=== PATIENT | male | born 1950 | race Caucasian/White ===

== ENCOUNTER 2017-08-20 06:52 | Day surgery (SDC) | payer BC, OTHER ==
[2017-08-20] MEDS: NS 1,000 ML IV (07:00)
[2017-08-20] MEDS ORDERED: PROPOFOL 200 MG/20 ML VIAL As Ordered (08:31)
== END 2017-08-20 09:06 | disposition home or self-care (01) ==
LOC: M OPP 06:52
DX: Z12.11 Encounter for screening for malignant neoplasm of colon (principal); K64.8 Other hemorrhoids; Z86.010 Personal history of colon polyps; Z79.82 Long term (current) use of aspirin; Z79.899 Other long term (current) drug therapy; I10 Essential (primary) hypertension; J45.990 Exercise induced bronchospasm
CPT/HCPCS: 45378

== ENCOUNTER 2020-06-18 12:10 | Observation (INO) | payer BC, OTHER ==
[~2020-06-18] VITALS: Ht 177.8 cm; Wt 82.7 kg
[~2020-06-18 12:10] MED LIST: ASPI-527 PO; VENTAER IN
[2020-06-18] MEDS ORDERED: NS 1,000 ML IV SCH (12:32)
--- NOTE | 2020-06-18 13:11 | REP ---
INDICATION: Altered Mental Status. COMPARISON: None. TECHNIQUE: Semi-erect AP portable view. FINDINGS: EKG monitoring electrodes are seen. The lungs are well inflated. There is minimal bibasilar linear fibrosis. Heart is not enlarged. No infiltrate is seen. Pulmonary vasculature is not increased. No significant bony abnormality. IMPRESSION: Minimal bibasilar linear fibrosis. Otherwise no acute disease. <Electronically signed by Joshua Cid > 06/18/20 [id number]
[2020-06-18 13:38] LABS: BASO % 0.4 % (0.0-1.0); EOS # 0.2 10^3/uL (0.0-0.5); EOS % 2.4 % (0.0-3.0); HEMATOCRIT 46.8 % (42.0-52.0); HEMOGLOBIN 15.8 g/dl (13.5-17.5); LYMPH # 1.2 10^3/uL (1.5-5.0); LYMPH % 17.1 % (24.0-44.0); MEAN CORPUSCULAR HEMOGLOBIN 29.7 pg (27.0-33.0); MEAN CORPUSCULAR HGB CONC 33.8 g/dl (32.0-36.5); MONO # 0.4 10^3/uL (0.0-0.8); MONO % 5.9 % (0.0-5.0); NEUTROPHILS % 73.8 % (36.0-66.0); PLATELET COUNT, AUTOMATED 215 10^3/uL (150-450); RED BLOOD COUNT 5.32 10^6/uL (4.30-6.10); WHITE BLOOD COUNT 6.7 10^3/uL (4.0-10.0)
--- NOTE | 2020-06-18 13:42 | REP ---
INDICATION: Altered Mental Status. COMPARISON: None. TECHNIQUE: Helical scanning is acquired. 5 mm axial images were reformatted. Coronal MPR images were generated. FINDINGS: Bone window settings demonstrate an intact bony calvarium. There is no evidence of skull fracture or incidental bony calvarial lesion. There is mild mucosal thickening affecting the ethmoid and sphenoid sinuses. The visualized paranasal sinuses appear otherwise clear. No intraorbital abnormality is seen. On soft tissue window setting images; the lateral, third, and fourth ventricles are normal in size and position. Flores-white differentiation pattern is normal above and below the tentorium. There are is no evidence of intracranial hemorrhage. No mass, edema, infarction, or midline shift is seen. No extra-axial fluid collection is appreciated. There is mild mucosal thickening affecting the ethmoid and sphenoid sinuses bilaterally. Vascular calcification is noted. IMPRESSION: Vascular calcification and mild mucosal thickening in the ethmoid sinuses. Otherwise negative noncontrast head CT. No acute intracranial abnormality.. <Electronically signed by Joshua Cid > 06/18/20 [id number]
[2020-06-18 13:48] LABS: INR 0.99; PROTHROMBIN TIME 13.3 SECONDS (12.5-14.3)
[2020-06-18 13:55] LABS: AMPHETAMINES LEVEL URINE NEGATIVE (NEGATIVE); BARBITURATES URINE NEGATIVE (NEGATIVE); BENZODIAZEPINES URINE NEGATIVE (NEGATIVE); CANNABINOIDS URINE NEGATIVE (NEGATIVE); COCAINE METABOLITE URINE NEGATIVE (NEGATIVE); METHADONE URINE NEGATIVE (NEGATIVE); OPIATES URINE NEGATIVE (NEGATIVE); PHENCYCLIDINE URINE NEGATIVE (NEGATIVE)
[2020-06-18 14:11] LABS: ACETAMINOPHEN LEVEL 6.6 UG/ML (10.0-30.0); ALBUMIN 3.8 GM/DL (3.2-5.2); ALT/SGPT 10 U/L (12-78); BILIRUBIN,DIRECT < 0.1 MG/DL (0.0-0.2); BILIRUBIN,TOTAL 0.6 MG/DL (0.2-1.0); BLOOD UREA NITROGEN 8 MG/DL (7-18); CARBON DIOXIDE LEVEL 19 MEQ/L (21-32); CHLORIDE LEVEL 107 MEQ/L (98-107); CK-MB VALUE MASS 1.9 NG/ML (<3.6); CPK CREATINE PHOSPHOKINASE 60 U/L (39-308); CREATININE FOR GFR 0.48 MG/DL (0.70-1.30); ETHYL ALCOHOL (ETHANOL) 0.006 % (0.000-0.010); GLOMERULAR FILTRATION RATE > 60.0 (>49); GLUCOSE, FASTING 122 MG/DL (70-100); MB/CK RELATIVE INDEX 3.17 (< OR =4); POTASSIUM SERUM 4.6 MEQ/L (3.5-5.1); SALICYLATE LEVEL < 1.7 MG/DL (5.0-30.0); SODIUM LEVEL 140 MEQ/L (136-145); TOTAL PROTEIN 6.4 GM/DL (6.4-8.2); TROPONIN I < 0.02 NG/ML (< 0.10)
[2020-06-18] MEDS ORDERED: LABETALOL 100MG/20ML VIAL IV STA ×2 (15:01→16:06)
[2020-06-18 17:55] VITALS: BP 163/96
--- NOTE | 2020-06-18 17:58 | HPEPDOC ---
[facility] Medical History & Physical Date of Admission Jun 18, 2020 Date of Service: Jun 18, 2020 Attending Physician: JOANNA CHAMPION DO History and Physical PCP: None. Previously seen by nurse practitioner at [facility] a few years ago, but this practitioner has since retired and he has not reestablished care with a new primary care provider. If possible, he would like to establish with a new PCP in [place], [place] as this is closer to his current home. CHIEF COMPLAINT: Syncope, fall, head laceration HISTORY OF PRESENT ILLNESS: Patient is a 69-year-old male who was brought to the emergency department status post a syncopal episode with unwitnessed fall. The patient cannot remember the fall, and vaguely remembers being brought to the ED by his . He has never had a syncopal episode or fall in the past, but reports that for many years now he does get lightheaded when standing up too quickly, and wonders if that may have been the predominant precipitant in this case. He does not recall having any sort of illness or symptoms earlier in the day or preceding his fall. Currently, here in the ED, he reports that he is actually feeling well all things considered. He is completely awake, alert, and oriented at this time, he is an otherwise excellent historian. He reports that his children think he may have tripped over the the dog as well. CODE STATUS: Full code PAST MEDICAL HISTORY: Hypertension Apparently he was treated with lisinopril in the past, but did not like the way it made him feel. Lisinopril made him feel groggy/lightheaded, and he was not able to participate in any strenuous activity while he was on it, therefore he quit taking it, and has not been taking any antihypertensives for at least the past few years. PAST SURGICAL HISTORY: None SOCIAL HISTORY: Denies smoking, has a few beers on a daily basis. Denies illicit drug use. FAMILY HISTORY: Father of what is suspected to be a myocardial infarction at the age of 22, beyond that he does not know much of his paternal family medical history. Mother has hypertension as well. REVIEW OF SYSTEMS: Constitutional: Patient denies fevers, chills, night sweats, recent weight gain/loss. HEENT: Patient denies blurred or double vision, transient visual disturbances, postnasal drip, epistaxis, sore throat, difficulty chewing or swallowing food. Cardiovascular: Patient denies chest discomfort/pain, palpitations, exertional dyspnea, orthopnea, edema of the extremities, claudication. Respiratory: Patient denies dyspnea, wheezing, cough, hemoptysis, sputum production. Gastrointestinal: Patient denies nausea, vomiting, diarrhea, constipation, abdominal pain, melena, hematochezia, hematemesis, jaundice. Neurological: Patient denies any numbness, tingling, or weakness of the extremities. He does experience lightheadedness when he stands up quickly. No history of seizures. PHYSICAL EXAMINATION: General: Awake, alert, oriented 3. HEENT: Head normocephalic, he does have a small laceration injury, it is not a linear wound, but it is perhaps 1 cm in length, located on the right posterior aspect of his scalp, martine in place. There is a significant amount of blood in his hair, but the wound is no longer healing at this time. conjunctiva are pink, sclera are nonicteric, buccal mucosa is pink and moist with no lesions in the oropharynx. Hearing is grossly intact to conversation. Wears glasses. Respiratory: Clear to auscultation bilaterally with no wheezes, rales, or rhonchi. Cardiovascular: Regular rate and rhythm, with no rubs, gallops, or murmur. No carotid bruits. Abdomen: Soft, nontender, nondistended, no hepatosplenomegaly appreciated. Bowel sounds present. Extremities: 2+ pulses in the radial and dorsalis pedis bilaterally. No evidence of clubbing or cyanosis. 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 5/5 strength throughout the bilateral upper and lower extremities. Finger to nose is performed easily and accurately bilaterally. Sensation is intact to light touch throughout bilateral upper and lower extremities. ELECTROCARDIOGRAM: Sinus rhythm, no acute abnormalities IMAGING: CT head without contrast IMPRESSION: Vascular calcification and mild mucosal thickening in the ethmoid sinuses. Otherwise negative noncontrast head CT. No acute intracranial abnormality.. ASSESSMENT: Hypertensive urgency Syncopal episode Fall with trauma to the posterior aspect of his head Acute amnesia after head trauma, now resolved, but still cannot remember the fall PLAN: Patient will be [facility] floor. His history would indicate that his syncopal episode and fall would be secondary to orthostatic hypotension, however he has a significantly elevated blood pressure upon arrival to the ED constituting hypertensive urgency. He does not have any evidence of end organ damage at this time, therefore the goal to lower his blood pressure to within normal limits will be over hours to days, therefore this will be done with PO medications. Given his history of hypertension, and not liking the effects of lisinopril making him feel groggy, and unable to handle physical activity, his significantly elevated blood pressure may be chronic in nature and even bringing his blood pressure down into the normal range may cause him lightheadedness. He was given 2 doses of labetalol in the emergency department and his pressure has improved from 210/110 down to 175/83. Will treat with captopril 12.5 mg every 8 hours with hold parameters. Nevertheless, in regard to working him up for hypertension and syncope: Renal and liver function is within normal limits, cardiac markers are negative, EKG is unremarkable, urinalysis is unremarkable, toxicology is negative, CBC is within normal limits, patient is not anemic. Neuro examination does not show any focal deficits. Will order echocardiogram, carotid duplex ultrasound, aldosterone/renin ratio, lipid panel, thyroid studies, hemoglobin A1c, and we'll keep him on telemetry over the next 48 hours. Vital Signs Vital Signs Date Time Temp Pulse Resp B/P (MAP) Pulse Ox O2 Delivery O2 Flow Rate FiO2 06/18/20 17:48 98.0 18 173/89 (117) 06/18/20 17:45 69 95 06/18/20 12:12 Room Air Laboratory Data Labs 24H Laboratory Tests 2 06/18/20 13:18: Immature Granulocyte % (Auto) 0.4, Neutrophils (%) (Auto) 73.8H, Lymphocytes (%) (Auto) 17.1L, Monocytes (%) (Auto) 5.9H, Eosinophils (%) (Auto) 2.4, Basophils (%) (Auto) 0.4, Neutrophils # (Auto) 5.0, Lymphocytes # (Auto) 1.2L, Monocytes # (Auto) 0.4, Eosinophils # (Auto) 0.2, Basophils # (Auto) 0.0, Nucleated Red Blood Cells % (auto) 0.0, Prothrombin Time 13.3, Prothromb Time International Ratio 0.99, Anion Gap 14, Glomerular Filtration Rate > 60.0, Lactic Acid Level 2.0, Calcium Level 10.0, Total Bilirubin 0.6, Direct Bilirubin < 0.1, Aspartate Amino Transf (AST/SGOT) 10, Alanine Aminotransferase (ALT/SGPT) 10L, Alkaline Phosphatase 47, Ammonia 16, Total Creatine Kinase 60, Creatine Kinase MB 1.9, Creatine Kinase MB Relative Index 3.17, Troponin I < 0.02, Total Protein 6.4, Albumin 3.8, Albumin/Globulin Ratio 1.5, Thyroid Stimulating Hormone (TSH) 1.050, Salicylates Level < 1.7L, Acetaminophen Level 6.6L, Ethyl Alcohol Level 0.006 06/18/20 13:22: Urine Color YELLOW, Urine Appearance CLEAR, Urine pH 6.0, Urine Specific [place] 1.012, Urine Protein NEGATIVE, Urine Glucose (UA) NEGATIVE, Urine Ketones NEGATIVE, Urine Blood NEGATIVE, Urine Nitrite NEGATIVE, Urine Bilirubin NEGATIVE, Urine Urobilinogen 0.2, Urine Leukocyte Esterase NEGATIVE, Urine WBC (Auto) 1, Urine RBC (Auto) 0, Urine Hyaline Casts (Auto) 0, Urine Bacteria (Auto) NEGATIVE, Urine Squamous Epithelial Cells 0, Urine Mucus (Auto) SMALL, Urine Sperm (Auto) , Urine Opiates Screen NEGATIVE, Urine Methadone Screen NEGATIVE, Urine Barbiturates Screen NEGATIVE, Urine Phencyclidine Screen NEGATIVE, Urine Amphetamines Screen NEGATIVE, Urine Benzodiazepines Screen NEGATIVE, Urine Cocaine Metabolite Screen NEGATIVE, Urine Cannabinoids Screen NEGATIVE CBC/BMP Laboratory Tests 06/18/20 13:18 Home Medications No Active Prescriptions or Reported Meds Allergies Coded Allergies: No Known Allergies (Unverified , 08/16/17) A-FIB/CHADSVASC A-FIB History Current/History of A-Fib/PAF?: No Current PO Anticoag Therapy: JOANNA Lopez DO Jun 18, 2020 17:58
[2020-06-18] MEDS ORDERED: ACETAMINOPHEN TAB 650MG DOSE (2X325MG) PO PRN (18:00)
[2020-06-18 18:54] LABS: HEMOGLOBIN A1c 5.5 %
[2020-06-18 19:16] LABS: CHOLESTEROL RISK RATIO 3.604 (<5); FREE T4 0.93 NG/DL (0.76-1.46); THYROID STIMULATING HORMONE 1.34 uIU/ML (0.358-3.740)
[2020-06-18] MEDS: ENOXAPARIN 40MG/0.4ML SYRINGE (J1650 PER 10MG) SC SCH (20:06)
[2020-06-18] MEDS: CAPTOpril 12.5 MG TAB PO SCH (21:36)
[2020-06-18 22:00] VITALS: BP_SYST 152; BP_SYST 155; BP_SYST 164; BP_DIAS 90; BP_DIAS 91; BP_DIAS 92
--- NOTE | 2020-06-18 22:00 | ECGEPIP ---
[facility] - ED Test Date: 2020-06-18 Pat Name: YOLI PEREZ Department: Room: - Gender: Male Healthcare Market Consultant: chava : 1950 Requested By: NAHEED GLASS Order Number: [id number] Reading MD: Gallo Khan Measurements Intervals [place] Rate: 71 P: 61 [place]: 180 QRS: 7 QRSD: 87 T: 74 QT: 394 QTc: 429 Interpretive Statements SINUS RHYTHM INCOMPLETE RIGHT BUNDLE BRANCH BLOCK NONSPECIFIC T-WAVE ABNORMALITY NO PRIORS FOR COMPARISON Electronically Signed on 06-18-2020 21:59:50 EDT by Gallo Khan
[2020-06-19 01:51] VITALS: BP_SYST 148; BP_SYST 150; BP_SYST 156; BP_DIAS 77; BP_DIAS 82; BP_DIAS 86
[2020-06-19 05:30] VITALS: BP 156/82
[2020-06-19] MEDS: CAPTOpril 12.5 MG TAB PO SCH (05:30)
[2020-06-19 06:00] VITALS: BP_SYST 143; BP_SYST 153; BP_SYST 156; BP_SYST 160; BP_DIAS 81; BP_DIAS 82; BP_DIAS 84; BP_DIAS 92
[2020-06-19 06:39] LABS: ALBUMIN 3.8 GM/DL (3.2-5.2); ALT/SGPT 20 U/L (12-78); BILIRUBIN,TOTAL 0.8 MG/DL (0.2-1.0); BLOOD UREA NITROGEN 13 MG/DL (7-18); CALCIUM LEVEL 8.6 MG/DL (8.8-10.2); CARBON DIOXIDE LEVEL 27 MEQ/L (21-32); CHLORIDE LEVEL 108 MEQ/L (98-107); CREATININE FOR GFR 0.86 MG/DL (0.70-1.30); GLOMERULAR FILTRATION RATE > 60.0 (>49); GLUCOSE, FASTING 105 MG/DL (70-100); POTASSIUM SERUM 3.9 MEQ/L (3.5-5.1); SODIUM LEVEL 141 MEQ/L (136-145); TOTAL PROTEIN 6.7 GM/DL (6.4-8.2)
--- NOTE | 2020-06-19 08:51 | REP ---
INDICATION: Syncope COMPARISON: None. TECHNIQUE: Real-time ultrasound evaluation and duplex Doppler interrogation of the extracranial carotid vasculature is performed. FINDINGS: There is moderate, mixed soft and calcific plaquing and narrowing in both carotid bulbs extending into the internal and external carotid arteries. Luminal narrowing is felt to be greater than 50%. Antegrade flow is observed in the left vertebral artery. Right vertebral artery is not seen. RIGHT LEFT Peak systolic velocity ICA 186 cm/s 167 cm/s End diastolic velocity ICA 53 cm/s 41 cm/s Peak systolic velocity CCA 90 cm/s 86cm/s Peak systolic velocity ECA 212 cm/s 117 cm/s ICA/CCA ratio 2.1 2.0 IMPRESSION: 50-69% category narrowing bilaterally in the internal carotid arteries by Doppler velocity criteria. Moderate mixed plaquing. Right vertebral artery flow not seen. <Electronically signed by Joshua Cid > 06/19/20 [id number]
[2020-06-19] MEDS ORDERED: ATORVASTATIN 20 MG TAB PO SCH (09:00)
[2020-06-19] MEDS ORDERED: lisinopriL 40 MG TAB PO SCH (09:00)
[2020-06-19] MEDS ORDERED: ASPIRIN 81 MG ENTERIC TAB PO SCH (09:00)
[2020-06-19] MEDS: ENOXAPARIN 40MG/0.4ML SYRINGE (J1650 PER 10MG) SC SCH (09:45)
[2020-06-19 10:00] VITALS: BP 140/92
[2020-06-19 13:47] VITALS: BP 139/72
[2020-06-19] MEDS ORDERED: ATOR40TA75 PO (13:58)
[2020-06-19] MEDS ORDERED: ASPI81TAEC PO (13:58)
[2020-06-19] MEDS ORDERED: LISI40TA PO (13:58)
--- NOTE | 2020-06-19 17:19 | DS.PDOC ---
Discharge Summary General Date of Admission Jun 18, 2020 at 12:11 Date of Discharge 06/19/2020 Discharge Summary PRIMARY CARE PHYSICIAN: Patient does not have a PCP at this time. Would like to establish with a new PCP in [place], [place] ATTENDING AT TIME OF DISCHARGE: Dr. Joanna Champion, DO DISCHARGE DIAGNOS(E)S: Syncopal episode Fall Head trauma with laceration, 3 martine placed in the ED Acute amnesia regarding the time of his fall, no retrograde or antegrade amnesia. Hypertensive urgency Chronic hypertension, untreated for the past few years Bilateral carotid artery narrowing, both sides in the 50-69% category with moderate mixed plaquing, and no flow is demonstrated in the right vertebral artery ASCVD risk at greater than 10% HPI & HOSPITAL COURSE: Patient presented to the emergency department status post unwitnessed fall. He cannot remember the fall with a subsequent injury. He did strike his head, he had a small laceration on the right posterior scalp which was stapled in the ED with 3 martine. The patient reports that he has had issues with lightheadedness when standing up quickly for the past few years, and he suspects that perhaps this was the cause of his fall. His children suspect that he may have just tripped over the dog. Nevertheless, upon arrival to the emergency department he had a blood pressure of greater than 200 systolic, he was given 2 doses of labetalol in the emergency department which brought him down to 175, and then he received captopril every 8 hours through the night which brought his systolic down to 143 and by 6 AM. At this point he was transitioned over to lisinopril 40 mg, and maintained blood pressure in the 140s throughout the morning, and at the time of discharge (approximately 2 PM) his blood pressure was 139/72. Orthostatic vital signs were taken on 3 separate occasions, and all were negative for orthostasis. The patient did not complain of any lightheadedness while these are being performed, and even with his lower blood pressure, he still is feeling fine, and is able to get up and move about the room without any issues. Cardiac markers negative, EKG showed sinus rhythm with an no acute abnormalities, urinalysis unremarkable, toxicology negative, CBC within normal limits (no evidence of illness or anemia), neurological examination does not show any focal deficits, or cerebellar signs/symptoms. Aldosterone/renin ratio has been ordered prior to giving the patient PANTERA inhibitor's, but this may not be available for at least a few days. Lipid panel was ordered, ASCVD risk is greater than 10% given his age and hypertension. Thyroid studies are within normal limits. Hemoglobin A1c 5.5. Patient was kept on telemetry with no events. Head CT in the ED did show vascular calcification and mild mucosal thickening in the ethmoid sinuses, but was otherwise unremarkable, and did not show any acute intracranial abnormality. Carotid ultrasound showed bilateral carotid artery narrowing, both sides were in the 50-69% category with moderate mixed plaquing, and it is noted that there was no flow demonstrated in the right vertebral artery. Neurological exam did not demonstrate any focal deficits, and he did not have any cerebellar signs or symptoms either. His issue is not urgent, and there is no vascular surgery coverage on the weekends, therefore he will be started on a atorvastatin and aspirin, and it is recommended that he should follow-up with a vascular surgeon on an outpatient basis. Otherwise, he is feeling great. He does not have any complaints at this time. He has not demonstrated orthostasis, and has not had any symptoms of lightheadedness even with the significant improvement in his blood pressure. Patient appears stable for discharge at this time. PHYSICAL EXAMINATION ON DISCHARGE: GENERAL: Awake, alert, oriented 3. He still cannot remember anything about the fall, but has perfect recollection of everything prior to that, and since his arrival in the ED. CARDIOVASCULAR EXAMINATION: Regular rate and rhythm, with no rubs, gallops, or murmur. RESPIRATORY EXAMINATION: Clear to auscultation bilaterally with no wheezes, rales, or rhonchi. ABDOMINAL EXAMINATION: Soft, nontender, nondistended. Bowel sounds present. EXTREMITIES: No clubbing or edema noted. 2+ pulses in the radial bilaterally. DISPOSITION: Home DISCHARGE INSTRUCTIONS: Follow-up with new primary care provider within the next 1-2 weeks. Diet as t olerated. Activity as tolerated. If symptoms return, or if you experience worsening of your symptoms, please call your doctor or return to the emergency department. DISCHARGE MEDICATIONS: Continue taking from home: Was not on any home medications New Medications: Aspirin 81 mg by mouth daily Atorvastatin 40 mg by mouth daily Lisinopril 40 mg by mouth daily -All prescriptions were sent to [facility] ITEMS THAT NEED OUTPATIENT FOLLOWUP: -Recommend referral/evaluation by vascular surgery regarding bilateral carotid artery narrowing. -Recommend outpatient echocardiogram -And will require close follow-up regarding hypertension -Renin and aldosterone levels were ordered prior to him receiving blood pressure medications. These results were not available at the time of discharge. -Will need martine removed Vital Signs/I&Os Vital Signs Date Time Temp Pulse Resp B/P (MAP) Pulse Ox O2 Delivery O2 Flow Rate FiO2 06/19/20 13:47 62 139/72 (94) 06/19/20 10:00 97.5 19 96 Room Air I&O- Last 24 Hours up to 6 AM 06/19/20 05:59 Intake Total 640 ml Output Total 1425 ml Balance -785 ml Laboratory Data Labs 24H Laboratory Tests 2 06/18/20 18:18: Estimated Mean Plasma Glucose 111H, Hemoglobin A1c 5.5, Triglycerides Level 82, Total Cholesterol 173, LDL Cholesterol 109H, Non-HDL Cholesterol (LDL + VLDL) 125, Total HDL Cholesterol 48, Cholesterol/HDL Ratio 3.604, Thyroid Stimulating Hormone (TSH) 1.340, Free Thyroxine 0.93 06/19/20 05:47: Anion Gap 6L, Glomerular Filtration Rate > 60.0, Calcium Level 8.6L, Total Bilirubin 0.8, Aspartate Amino Transf (AST/SGOT) 8, Alanine Aminotransferase (ALT/SGPT) 20, Alkaline Phosphatase 65, Total Protein 6.7, Albumin 3.8, Albumin/Globulin Ratio 1.3 CBC/BMP Laboratory Tests 06/19/20 05:47 Discharge Medications Scheduled Aspirin (Aspirin EC) 81 Mg Tablet.dr 81 MG PO DAILY Atorvastatin Calcium (Atorvastatin Calcium) 40 Mg Tablet, 40 MG PO DAILY Lisinopril (Lisinopril) 40 Mg Tablet, 40 MG PO DAILY Allergies Coded Allergies: No Known Allergies (Unverified , 08/16/17) JOANNA CHAMPION DO Jun 19, 2020 17:13
[2020-06-20] MEDS ORDERED: FLUBLOK(EGG FREE)(QUAD)INFLUENZA VACC 0.5ML SYRINGE 18YRS & OLDER IM ONE (09:00)
== END 2020-06-19 15:02 | disposition home or self-care (01) ==
LOC: M ED 12:10 → M ED INP 12:11 → M MSPAV 17:55
PROVIDERS: ADMIT Neuromusculoskeletal Medicine & OMM; ATTEND Neuromusculoskeletal Medicine & OMM
DX: R55 Syncope and collapse (principal); S01.01XA Laceration without foreign body of scalp, initial encounter; W19.XXXA Unspecified fall, initial encounter; Y92.89 Other specified places as the place of occurrence of the external cause; Y93.9 Activity, unspecified; Y99.9 Unspecified external cause status; R41.3 Other amnesia; I16.0 Hypertensive urgency; I10 Essential (primary) hypertension; I65.23 Occlusion and stenosis of bilateral carotid arteries; Z79.82 Long term (current) use of aspirin; Z79.899 Other long term (current) drug therapy
CPT/HCPCS: 36415; 70450; 71045; 80048; 80053; 80061; 80076; 80307; 81001; 82088; 82140; 82550; 82553; 83036; 83605; 84244; 84439; 84443; 84484; 85025; 85610; 93005; 93041; 93880; 94760; 96361; 96372; 96374; 96376; 99285; G0480; J1650

== ENCOUNTER → 2020-07-18 | Outpatient (REF) | payer OTHER ==
[~2020-07-18] MED LIST changes: +ASPI81TAEC PO; +ATOR40TA75 PO; +LISI40TA PO
[2020-07-19 12:22] LABS: BLOOD UREA NITROGEN 22 MG/DL (7-18); CALCIUM LEVEL 9.3 MG/DL (8.8-10.2); CARBON DIOXIDE LEVEL 29 MEQ/L (21-32); CHLORIDE LEVEL 107 MEQ/L (98-107); CREATININE FOR GFR 1.02 MG/DL (0.70-1.30); GLOMERULAR FILTRATION RATE > 60.0 (>49); GLUCOSE, FASTING 87 MG/DL (70-100); POTASSIUM SERUM 5.6 MEQ/L (3.5-5.1); SODIUM LEVEL 138 MEQ/L (136-145)
== END ==
LOC: M SFHCCLAY 15:42
PROVIDERS: ATTEND Family Medicine
DX: I11.9 Hypertensive heart disease without heart failure (principal)

== ENCOUNTER → 2020-07-20 | Outpatient (REF) | payer OTHER ==
[2020-07-20 11:42] LABS: BLOOD UREA NITROGEN 27 MG/DL (7-18); CALCIUM LEVEL 9.6 MG/DL (8.8-10.2); CARBON DIOXIDE LEVEL 32 MEQ/L (21-32); CHLORIDE LEVEL 103 MEQ/L (98-107); CREATININE FOR GFR 1.02 MG/DL (0.70-1.30); GLOMERULAR FILTRATION RATE > 60.0 (>49); GLUCOSE, FASTING 105 MG/DL (70-100); POTASSIUM SERUM 4.4 MEQ/L (3.5-5.1); SODIUM LEVEL 137 MEQ/L (136-145)
== END ==
LOC: M SFHCCLAY 07:18
PROVIDERS: ATTEND Family Medicine
DX: E87.5 Hyperkalemia (principal)

== ENCOUNTER → 2020-08-09 | Outpatient (REF) | payer OTHER ==
[2020-08-09 12:23] LABS: CHOLESTEROL RISK RATIO 3.933 (<5)
[2020-08-09 13:22] LABS: HEMOGLOBIN A1c 5.7 %
== END ==
LOC: M LABDRAWC 11:10
PROVIDERS: ATTEND Internal Medicine Cardiovascular Disease
DX: I65.23 Occlusion and stenosis of bilateral carotid arteries (principal)

== ENCOUNTER → 2020-08-18 | Outpatient (CLI) | payer OTHER | LOC: M LABSMTC 13:30 | PROVIDERS: ATTEND Anesthesiology | DX: Z01.812 Encounter for preprocedural laboratory examination (principal); Z20.828 Contact with and (suspected) exposure to other viral communicable diseases ==

== ENCOUNTER 2020-08-23 13:15 | Day surgery (SDC) | payer BC, OTHER ==
[~2020-08-23] VITALS: Ht 177.8 cm; Wt 79.4 kg
[~2020-08-23 13:15] MED LIST changes: +LR 1,000 ML IV ONE; +ceFAZolin SOD 2 GM in IV 1 EA IV ONE
[2020-08-23] MEDS ORDERED: LISI-538 PO (13:37)
[2020-08-23] MEDS ORDERED: LIDOCAINE 2% 100MG/5ML SDV (FOR ANES.) As Ordered ONE (14:38)
[2020-08-23] MEDS ORDERED: propofoL 200 MG/20 ML VIAL As Ordered ONE (14:38)
[2020-08-23] MEDS ORDERED: MIDAZOLAM INJ 2MG/2ML VIAL (J2250 PER 1MG) As Ordered ONE (14:38)
[2020-08-23] MEDS ORDERED: fentaNYL 100 MCG/2 ML INJECTION (J3010) As Ordered ONE (14:38)
[2020-08-23] MEDS ORDERED: LIDOCAINE 1% SDV 30ML VIAL As Ordered ONE (15:04)
[2020-08-23 16:35] VITALS: BP 135/83
--- NOTE | 2020-08-24 09:17 | RO ---
OPERATIVE NOTE DATE OF OPERATION: 08/23/2020 PREOPERATIVE DIAGNOSIS: Unexplained syncope. POSTOPERATIVE DIAGNOSIS: Unexplained syncope. FINDINGS: Unexplained syncope. PROCEDURE PERFORMED: Implantation of a Medtronic subcutaneous cardiac rhythm monitor. SURGEON: Alejandro Turk M.D. HOLTER SCANNING TECHNICIAN: None ANESTHESIA: Lidocaine 1%/local monitored anesthetic care. SPECIMEN(S): None. ESTIMATED BLOOD LOSS: Less than 1 mL. BLOOD PRODUCTS: None replaced. DRAINS: None. COMPLICATIONS: None. DESCRIPTION OF PROCEDURE: The patient was prepped and draped over the sternum and left anterior chest. Lidocaine 1% was used for local anesthetic. An incision was made with a #15 blade through the skin at approximately the left fourth interspace, 1 inch lateral to the left parasternal border. The guide on the insertion tube was placed into the incision and advanced into the subcutaneous tissue parallel to the chest wall. The insertion tube was rotated 180 degrees and then the plunger was used to advance the cardiac rhythm monitor into the subcutaneous tissue. The plunger was removed and then the insertion tube was removed. The initial R-wave amplitude was 1.79 mV. The skin was then approximated temporarily using a 4-0 Biosyn suture applied at the cuticular level. The free ends of the suture were protruding 1 cm from either side of the incision line at both ends. Next, three layers of Dermabond was applied. The Biosyn suture was then removed from the incision line by pulling it through. The subcutaneous cardiac rhythm monitor implanted was a TranquilMed Reveal LINQ, Model LNQ11 with Serial #[id number].
== END 2020-08-23 16:35 | disposition home or self-care (01) ==
LOC: M SDC 13:15
PROVIDERS: ATTEND Internal Medicine Cardiovascular Disease
DX: R55 Syncope and collapse (principal); I10 Essential (primary) hypertension; Z79.82 Long term (current) use of aspirin; Z79.899 Other long term (current) drug therapy
CPT/HCPCS: 33285; C1764; J0690; J2250; J3010

== ENCOUNTER → 2020-11-22 | Outpatient (REF) | payer OTHER ==
[~2020-11-22] MED LIST changes: +ASPI-569 PO; -ASPI81TAEC PO; +LISI20TA33 PO; -LISI40TA PO; +LISI40TA4 PO; -LR 1,000 ML IV ONE; -ceFAZolin SOD 2 GM in IV 1 EA IV ONE
[2020-11-22 12:12] LABS: CHOLESTEROL RISK RATIO 2.936 (<5)
== END ==
LOC: M SFHCCLAY 07:29
PROVIDERS: ATTEND Family Medicine
DX: Z00.00 Encounter for general adult medical examination without abnormal findings (principal); Z13.220 Encounter for screening for lipoid disorders

== ENCOUNTER → 2020-11-29 | Outpatient (CLI) | payer BC, OTHER ==
--- NOTE | 2020-11-29 09:28 | REP ---
INDICATION: HYPERLIPIDEMIA, UNSPECIFIED COMPARISON: None. TECHNIQUE: Real time aguilar scale ultrasound examination using curved array transducer. FINDINGS: The abdominal aorta demonstrates moderate atheromatous plaquing. Evaluation is somewhat limited due to overlying bowel gas. No obvious aneurysm identified. Proximal aorta: 2.1 x 2.6 cm Aorta at renal arteries: 2.2 x 2.4 cm Mid aorta: 2.1 x 1.6 cm Distal aorta: 1.6 x 1.5 cm Right common iliac artery: 0.8 x 0.9 cm Left common iliac artery: 1.0 x 1.1 cm IMPRESSION: Moderate atheromatous changes. No aneurysm. <Electronically signed by Garcia Piedra > 11/29/20 0912
== END ==
LOC: M RAD 08:34
PROVIDERS: ATTEND Family Medicine
DX: I71.4 Abdominal aortic aneurysm, without rupture (principal)

== ENCOUNTER → 2020-11-30 | Outpatient (CLI) | payer BC ==
--- NOTE | 2020-11-30 11:03 | REP ---
INDICATION: M25.511, PAIN IN RIGHT SHOULDER COMPARISON: None. TECHNIQUE: Internal rotation, external rotation, and Y view. FINDINGS: No evidence for acute fracture or dislocation. Mild age-related changes include subtle cortical irregularity at the acromioclavicular joint as well as a very small early spurring along the inferior margin of the humeral head and subtle blunting to the calcified glenoid rim. Subacromial space is normal. No periarticular calcifications or loose bodies are identified. IMPRESSION: Mild degenerative changes. <Electronically signed by Garcia Piedra > 11/30/20 1056
== END ==
LOC: M CLY 10:15
PROVIDERS: ATTEND Physician Assistant
DX: M25.511 Pain in right shoulder (principal)

== ENCOUNTER → 2021-07-25 | Outpatient (REF) | payer OTHER ==
[2021-07-25 16:07] LABS: HEMOGLOBIN 15.2 g/dl (13.5-17.5); MEAN CORPUSCULAR HEMOGLOBIN 31.1 pg (27.0-33.0); MEAN CORPUSCULAR HGB CONC 34.5 g/dl (32.0-36.5); PLATELET COUNT, AUTOMATED 223 10^3/uL (150-450); RED BLOOD COUNT 4.89 10^6/uL (4.30-6.10); WHITE BLOOD COUNT 6.1 10^3/uL (4.0-10.0)
[2021-07-25 16:41] LABS: ALBUMIN 3.8 GM/DL (3.2-5.2); ALT/SGPT 27 U/L (12-78); BILIRUBIN,TOTAL 0.5 MG/DL (0.2-1.0); BLOOD UREA NITROGEN 14 MG/DL (7-18); CALCIUM LEVEL 8.8 MG/DL (8.8-10.2); CARBON DIOXIDE LEVEL 30 MEQ/L (21-32); CHLORIDE LEVEL 107 MEQ/L (98-107); CREATININE FOR GFR 0.81 MG/DL (0.70-1.30); GLOMERULAR FILTRATION RATE > 60.0 (>49); GLUCOSE, FASTING 95 MG/DL (70-100); MAGNESIUM LEVEL 2.1 MG/DL (1.8-2.4); POTASSIUM SERUM 4.1 MEQ/L (3.5-5.1); SODIUM LEVEL 142 MEQ/L (136-145); TOTAL PROTEIN 6.8 GM/DL (6.4-8.2)
== END ==
LOC: M LABDRAWC 15:39
PROVIDERS: ATTEND Physician Assistant
DX: I10 Essential (primary) hypertension (principal)

== ENCOUNTER → 2021-08-18 | Outpatient (CLI) | payer BC, OTHER ==
[~2021-08-18] MED LIST changes: +LOSA25TA14 PO; +NITR0.4S14 PO; +VITA500T17 PO
== END ==
LOC: M LABSMTC 12:08
PROVIDERS: ATTEND Anesthesiology
DX: Z01.818 Encounter for other preprocedural examination (principal); Z11.52 Encounter for screening for COVID-19

== ENCOUNTER → 2021-11-29 | Outpatient (REF) | payer OTHER ==
[~2021-11-29] MED LIST changes: +LOSA25TA13 PO; -LOSA25TA14 PO
[2021-11-29 11:57] LABS: BLOOD UREA NITROGEN 18 MG/DL (7-18); CARBON DIOXIDE LEVEL 29 MEQ/L (21-32); CHLORIDE LEVEL 108 MEQ/L (98-107); CREATININE FOR GFR 0.84 MG/DL (0.70-1.30); GLOMERULAR FILTRATION RATE > 60.0 (>49); GLUCOSE, FASTING 102 MG/DL (70-100); POTASSIUM SERUM 4.6 MEQ/L (3.5-5.1); SODIUM LEVEL 141 MEQ/L (136-145)
[2021-11-29 12:17] LABS: HEMOGLOBIN A1c 5.4 %
== END ==
LOC: M SFHCCLAY 07:25
PROVIDERS: ATTEND Family Medicine
DX: Z00.00 Encounter for general adult medical examination without abnormal findings (principal); I11.0 Hypertensive heart disease with heart failure; R73.01 Impaired fasting glucose

== ENCOUNTER → 2022-06-01 | Outpatient (REF) | payer OTHER ==
[2022-06-01 17:02] LABS: HEMATOCRIT 44.2 % (42.0-52.0); HEMOGLOBIN 14.8 g/dl (13.5-17.5); MEAN CORPUSCULAR HEMOGLOBIN 30.7 pg (27.0-33.0); MEAN CORPUSCULAR HGB CONC 33.5 g/dl (32.0-36.5); MEAN CORPUSCULAR VOLUME 91.7 fl (80.0-96.0); PLATELET COUNT, AUTOMATED 208 10^3/uL (150-450); RED BLOOD COUNT 4.82 10^6/uL (4.30-6.10); WHITE BLOOD COUNT 6.7 10^3/uL (4.0-10.0)
[2022-06-01 18:00] LABS: ALBUMIN 4.1 GM/DL (3.2-5.2); ALT/SGPT 21 U/L (12-78); BLOOD UREA NITROGEN 15 MG/DL (7-18); CALCIUM LEVEL 8.9 MG/DL (8.8-10.2); CARBON DIOXIDE LEVEL 29 MEQ/L (21-32); CHLORIDE LEVEL 106 MEQ/L (98-107); CHOLESTEROL LEVEL 149 MG/DL (<200); CHOLESTEROL RISK RATIO 2.568 (<5); CREATININE FOR GFR 0.84 MG/DL (0.70-1.30); GLOMERULAR FILTRATION RATE > 60.0 (>42); GLUCOSE, FASTING 94 MG/DL (70-100); HDL CHOLESTEROL 58 MG/DL (>40); LDL CHOLESTEROL 76 MG/DL (<100); NON-HDL-C 91 MG/DL; POTASSIUM SERUM 4.8 MEQ/L (3.5-5.1); SODIUM LEVEL 140 MEQ/L (136-145); TOTAL PROTEIN 6.7 GM/DL (6.4-8.2); TRIGLYCERIDES LEVEL 77 MG/DL (<150)
[2022-06-01 19:14] LABS: HEMOGLOBIN A1c 5.3 %
== END ==
LOC: M SFHCCLAY 10:34
PROVIDERS: ATTEND Nurse Practitioner Family
DX: I10 Essential (primary) hypertension (principal); F17.211 Nicotine dependence, cigarettes, in remission; R73.01 Impaired fasting glucose

== ENCOUNTER → 2023-11-04 | Outpatient (REF) | payer OTHER, BC ==
[2023-11-04 13:31] LABS: THYROID STIMULATING HORMONE 1.842 uIU/ML (0.55-4.78); VITAMIN B12 LEVEL 741 PG/ML (211-911)
[2023-11-04 13:33] LABS: FOLATE > 24.0 NG/ML (>5.4)
== END ==
LOC: M LABDRAWC 11:27
PROVIDERS: ATTEND Psychiatry & Neurology Neurology
DX: E53.8 Deficiency of other specified B group vitamins (principal)

== ENCOUNTER → 2024-06-12 | Outpatient (REF) | payer BC ==
[2024-06-12 12:34] LABS: HEMATOCRIT 44.5 % (42.0-52.0); MEAN CORPUSCULAR HEMOGLOBIN 29.8 pg (27.0-33.0); MEAN CORPUSCULAR HGB CONC 33.7 g/dl (32.0-36.5); MEAN CORPUSCULAR VOLUME 88.3 fl (80.0-96.0); PLATELET COUNT, AUTOMATED 203 10^3/uL (150-450); RED BLOOD COUNT 5.04 10^6/uL (4.30-6.10); WHITE BLOOD COUNT 5.3 10^3/uL (4.0-10.0)
[2024-06-12 13:01] LABS: HEMOGLOBIN A1c 5.5 % (4.0-6.0)
[2024-06-12 13:11] LABS: ALBUMIN 3.9 G/DL (3.2-5.2); ALKALINE PHOSPHATASE 72 U/L (40-129); ALT/SGPT 25 U/L (7.0-40); AST/SGOT 10 U/L (<34); BILIRUBIN,TOTAL 0.6 MG/DL (0.3-1.2); BLOOD UREA NITROGEN 11 MG/DL (9-23); CALCIUM LEVEL 9.6 MG/DL (8.3-10.6); CARBON DIOXIDE LEVEL 31 MMOL/L (20-31); CHLORIDE LEVEL 106 MMOL/L (98-107); CHOLESTEROL LEVEL 176 MG/DL (<200); CHOLESTEROL RISK RATIO 3.39 (<5); CREATININE FOR GFR 0.74 MG/DL (0.70-1.30); GLOMERULAR FILTRATION RATE > 60.0 (>42); GLUCOSE, FASTING 79 MG/DL (74-106); HDL CHOLESTEROL 51.9 MG/DL (>40); LDL CHOLESTEROL 100.9 MG/DL (<100); NON-HDL-C 124.1 MG/DL; POTASSIUM SERUM 4.2 MMOL/L (3.5-5.1); SODIUM LEVEL 141 MMOL/L (136-145); THYROID STIMULATING HORMONE 1.258 uIU/ML (0.55-4.78); TOTAL PROTEIN 6.7 G/DL (5.7-8.2); TRIGLYCERIDES LEVEL 116 MG/DL (<150)
[2024-06-12 13:12] LABS: FREE T4 1.18 NG/DL (0.89-1.76)
== END ==
LOC: M SFHCCLAY 08:49
PROVIDERS: ATTEND Nurse Practitioner Family
DX: G89.29 Other chronic pain (principal); I10 Essential (primary) hypertension; M54.50 Low back pain, unspecified; R73.01 Impaired fasting glucose; R41.3 Other amnesia

== ENCOUNTER → 2024-11-02 | Outpatient (CLI) | payer MEDICARE, OTHER | LOC: M EKG 08:48 | PROVIDERS: ATTEND Physician Assistant | DX: R42 Dizziness and giddiness (principal) ==

== ENCOUNTER → 2025-01-04 | Outpatient (CLI) | payer OTHER, MEDICARE | LOC: M RAD 12:17 | PROVIDERS: ATTEND Physician Assistant | DX: I65.21 Occlusion and stenosis of right carotid artery (principal) ==

== ENCOUNTER → 2025-01-04 | Outpatient (REF) | payer MEDICARE ==
[2025-01-04 17:49] LABS: BASO # 0.1 10^3/uL (0.0-0.2); BASO % 1.2 % (0.0-1.0); EOS # 0.6 10^3/uL (0.0-0.5); EOS % 8.5 % (0.0-3.0); HEMATOCRIT 42.1 % (42.0-52.0); HEMOGLOBIN 13.7 g/dl (13.5-17.5); LYMPH # 1.9 10^3/uL (1.5-5.0); MEAN CORPUSCULAR HEMOGLOBIN 28.1 pg (27.0-33.0); MEAN CORPUSCULAR HGB CONC 32.5 g/dl (32.0-36.5); MEAN CORPUSCULAR VOLUME 86.4 fl (80.0-96.0); MONO # 0.6 10^3/uL (0.0-0.8); NEUTROPHILS # 4.2 10^3/uL (1.5-8.5); PLATELET COUNT, AUTOMATED 271 10^3/uL (150-450); RED BLOOD COUNT 4.87 10^6/uL (4.30-6.10); WHITE BLOOD COUNT 7.4 10^3/uL (4.0-10.0)
[2025-01-04 17:55] LABS: ERYTHROCYTE SEDIMENTATION RATE 14 mm/hr (0-20)
[2025-01-04 18:07] LABS: ALBUMIN 3.8 G/DL (3.2-5.2); ALKALINE PHOSPHATASE 73 U/L (40-129); ALT/SGPT 18 U/L (7.0-40); AST/SGOT 11 U/L (<34); BILIRUBIN,TOTAL 0.5 MG/DL (0.3-1.2); BLOOD UREA NITROGEN 12 MG/DL (9-23); C REACTIVE PROTEIN QUANTITATIV 1.51 MG/DL (<1.0); CALCIUM LEVEL 9.3 MG/DL (8.3-10.6); CARBON DIOXIDE LEVEL 32 MMOL/L (20-31); CHLORIDE LEVEL 105 MMOL/L (98-107); CREATININE FOR GFR 0.73 MG/DL (0.70-1.30); GLOMERULAR FILTRATION RATE > 90.0 (>42); GLUCOSE, FASTING 78 MG/DL (74-106); POTASSIUM SERUM 4.5 MMOL/L (3.5-5.1); SODIUM LEVEL 142 MMOL/L (136-145); TOTAL PROTEIN 6.9 G/DL (5.7-8.2)
[2025-01-04 18:10] LABS: THYROID STIMULATING HORMONE 1.377 uIU/ML (0.55-4.78)
[2025-01-04 18:12] LABS: RHEUMATOID FACTOR QUANT < 3.5 IU/ML (<14)
[2025-01-06 16:48] LABS: ANA PATTERN Cytoplasmic (NEGATIVE); ANA SCREEN, IFA POSITIVE (NEGATIVE); ANA TITER 1:40 titer (<1:40)
[2025-01-08 15:17] LABS: LYME TOTAL ANTIBODY CIA <= 0.90 Index (<=0.90)
== END ==
LOC: M SFHCCLAY 09:38
PROVIDERS: ATTEND Physician Assistant
DX: M25.50 Pain in unspecified joint (principal); Z79.899 Other long term (current) drug therapy

== ENCOUNTER → 2025-06-23 | Outpatient (REF) | payer MEDICARE ==
[~2025-06-23] MED LIST changes: +LISI40TA10 PO; -LISI40TA4 PO; -VITA500T17 PO; +VITA500T8 PO
[2025-06-23 12:39] LABS: ALT/SGPT 25 U/L (7.0-40); AST/SGOT 25 U/L (<34); CALCIUM LEVEL 9.4 MG/DL (8.3-10.6); CARBON DIOXIDE LEVEL 33 MMOL/L (20-31); CHLORIDE LEVEL 104 MMOL/L (98-107); CHOLESTEROL LEVEL 116 MG/DL (<200); CHOLESTEROL RISK RATIO 2.51 (<5); CREATININE FOR GFR 0.74 MG/DL (0.70-1.30); GLOMERULAR FILTRATION RATE > 90.0 (>42); LDL CHOLESTEROL 55.7 MG/DL (<100); NON-HDL-C 69.9 MG/DL; POTASSIUM SERUM 5.5 MMOL/L (3.5-5.1); SODIUM LEVEL 143 MMOL/L (136-145); TRIGLYCERIDES LEVEL 71 MG/DL (<150)
[2025-06-23 12:46] LABS: ESTIMATED AVERAGE GLUCOSE 111.0 MG/DL (60-110)
== END ==
LOC: M SFHCCLAY 07:36
PROVIDERS: ATTEND Nurse Practitioner Family
DX: I10 Essential (primary) hypertension (principal); R73.01 Impaired fasting glucose; Z13.220 Encounter for screening for lipoid disorders

== ENCOUNTER → 2025-06-28 | Outpatient (REF) | payer MEDICARE ==
[2025-06-28 13:01] LABS: BASO # 0.1 10^3/uL (0.0-0.2); BASO % 1.7 % (0.0-1.0); EOS # 0.4 10^3/uL (0.0-0.5); EOS % 6.9 % (0.0-3.0); LYMPH # 1.7 10^3/uL (1.5-5.0); LYMPH % 31.5 % (24.0-44.0); MONO # 0.4 10^3/uL (0.0-0.8); MONO % 7.3 % (2.0-8.0); NEUTROPHILS # 2.8 10^3/uL (1.5-8.5); NEUTROPHILS % 52.4 % (36.0-66.0); PLATELET COUNT, AUTOMATED 202 10^3/uL (150-450)
[2025-06-28 13:29] LABS: CALCIUM LEVEL 8.8 MG/DL (8.3-10.6); CARBON DIOXIDE LEVEL 30 MMOL/L (20-31); CHLORIDE LEVEL 104 MMOL/L (98-107); CREATININE FOR GFR 0.76 MG/DL (0.70-1.30); FREE T4 0.96 NG/DL (0.89-1.76); GLOMERULAR FILTRATION RATE > 90.0 (>42); POTASSIUM SERUM 4.6 MMOL/L (3.5-5.1); SODIUM LEVEL 142 MMOL/L (136-145)
== END ==
LOC: M SFHCCLAY 07:26
PROVIDERS: ATTEND Nurse Practitioner Family
DX: R00.2 Palpitations (principal); E87.5 Hyperkalemia

== ENCOUNTER → 2025-08-18 | Outpatient (CLI) | payer MEDICARE, OTHER ==
[2025-08-18 17:16] LABS: CREATININE FOR GFR 0.81 MG/DL (0.70-1.30); GLOMERULAR FILTRATION RATE > 90.0 (>42)
== END ==
LOC: M LABDRAWC 09:37
PROVIDERS: ATTEND Neurological Surgery
DX: I65.23 Occlusion and stenosis of bilateral carotid arteries (principal)